=== PATIENT | male | born 1950 | race Caucasian/White ===

== ENCOUNTER 2021-11-06 07:11 | Inpatient (IN) | payer OTHER ==
[~2021-11-06] VITALS: Ht 177.8 cm; Wt 58.1 kg
--- NOTE | 2021-11-06 07:15 | NUR ---
CALLED [facility] [phone] PER ISADORA VAN DNR/DNI SINCE AUG 2021 ASKED FOR INFO TO BE FAXED TO US.
[2021-11-06] MEDS ORDERED: IV NS 0.9% 1,000 ML BAG IV ONE (07:30)
[2021-11-06] MEDS ORDERED: PIPERACILLIN /TAZOBACTAM 3.375 G in IV D5W 50 ML IV ONE (07:30)
[2021-11-06] MEDS ORDERED: VANCOMYCIN 1 GM in IV D5W 250 ML IV ONE (07:30)
--- NOTE | 2021-11-06 07:40 | NUR ---
[facility]
[2021-11-06] MEDS ORDERED: ATOR40TA PO (07:47)
[2021-11-06] MEDS ORDERED: MULT-754 PO (07:47)
[2021-11-06] MEDS ORDERED: ASPI-1169 PO (07:47)
[2021-11-06] MEDS ORDERED: DOCU-141 PO (07:47)
[2021-11-06] MEDS ORDERED: FINA5TAB11 PO (07:47)
[2021-11-06] MEDS ORDERED: SENN-261 PO (07:47)
[2021-11-06] MEDS ORDERED: CHOL100043 PO (07:47)
[2021-11-06] MEDS ORDERED: ACET-868 PO ×2 (07:47)
--- NOTE | 2021-11-06 07:49 | NUR ---
[place]- confirmed DNR/DNI status. next of kin: susie Horne [phone]
[2021-11-06] MEDS ORDERED: ACETAMINOPHEN 650 MG/SUPP.RECT RC ONE ×2 (08:00→08:28)
--- NOTE | 2021-11-06 08:02 | NUR ---
COVID ANTIGEN SWAB DONE AND SENT TO THE LAB
--- NOTE | 2021-11-06 08:08 | NUR ---
MOVE SHEET SUBMITTED.
[2021-11-06 08:17] LABS: BASOPHILS % (AUTO) 0.3 % (0.0-2.0); EOSINOPHILS % (AUTO) 0.1 % (0.0-6.0); HEMATOCRIT 43 % (39-51); HEMOGLOBIN 14.1 g/dL (13.5-17.5); LYMPHOCYTES # (AUTO) 0.5 K/uL (0.8-4.8); MEAN CORPUSCULAR HGB CONC 33 g/dl (31.0-36.0); MEAN CORPUSCULAR VOLUME 100 fL (80-96); MONOCYTES # (AUTO) 0.1 K/uL (0.1-1.30); MONOCYTES % (AUTO) 6.1 % (2.0-12.0); NEUTROPHILS # (AUTO) 1.5 K/uL (1.8-8.9); NEUTROPHILS % (AUTO) 69.5 % (43.0-81.0); PLATELET COUNT (AUTO) 193 K/uL (150-450); RED BLOOD CELL COUNT(AUTO) 4.31 MIL/uL (4.5-6.0); WHITE BLOOD COUNT (AUTO) 2.1 K/uL (4.3-11.0)
--- NOTE | 2021-11-06 08:19 | NUR ---
JENNIFER ARMSTRONG FROM LAB THE PHLEBATOMIST OBTAINED BLOOD FOR BLOOD CULTURES
[2021-11-06 08:37] LABS: ALANINE AMINOTRANSFERASE 19 U/L (12-78); ALBUMIN 2.7 g/dL (3.4-5.0); ALKALINE PHOSPHATASE 59 U/L (46-116); ASPARTATE AMINOTRANSFERASE 19 U/L (15-37); BILIRUBIN,DIRECT 0.2 mg/dL (0.0-0.2); BILIRUBIN,TOTAL 0.5 mg/dL (0.2-1.0); CALCIUM, SERUM 8.4 mg/dL (8.5-10.1); CARBON DIOXIDE 24 mmol/L (21-32); CHLORIDE 124 mmol/L (98-107); CREATININE 3.3 mg/dL (0.6-1.3); GLUCOSE 156 mg/dL (74-106); POTASSIUM 4.4 mmol/L (3.5-5.1); TOTAL PROTEIN, SERUM 7.6 g/dL (6.4-8.2)
[2021-11-06 08:40] LABS: SODIUM SERUM 162 mmol/L (136-145); UREA NITROGEN, BLOOD 87 mg/dL (7-18)
--- NOTE | 2021-11-06 09:15 | NUR ---
BLOOD PRESSURE 210/[address] MARCUS MADE AWARE.
--- NOTE | 2021-11-06 09:30 | NUR ---
Gregg SANTANA FROM [facility] SPEAKING WITH DR. MARCUS.
[2021-11-06 10:36] LABS: BILIRUBIN,URINE NEGATIVE (NEGATIVE); COLOR,URINE YELLOW (YELLOW); LEUKOCYTE ESTERASE ,URINE SMALL (NEGATIVE); NITRITE, URINE NEGATIVE (NEGATIVE); PROTEIN,URINE 100 mg/dl (NEGATIVE); UGLUCOSE NEGATIVE (NEGATIVE); UROBILINOGEN,URINE 0.2 EU/dL (0.2)
--- NOTE | 2021-11-06 11:34 | NUR ---
COVID POSITIVE PER LAB
[2021-11-06 12:18] LABS: BACTERIA,URINE Many /HPF (None Seen); SQUAMOUS EPITHELIAL CELL,UR Moderate /HPF (None Seen); WBC,URINE 21-50 /HPF (0-3)
[2021-11-06] MEDS ORDERED: ACETAMINOPHEN 650 MG/SUPP.RECT RC PRN (12:30)
[2021-11-06] MEDS ORDERED: CEFEPIME 1 GM in IV D5W 50 ML IV SCH (12:30)
[2021-11-06] MEDS ORDERED: ACETAMINOPHEN 325 MG TABLET PO PRN ×2 (12:30)
[2021-11-06] MEDS ORDERED: DEXAMETHASONE SOD PHOSPHATE 10 MG/ML VIAL ONE (12:37)
[2021-11-06] MEDS: DEXAMETHASONE SOD PHOSPHATE 10 MG/ML VIAL IV SCH (12:43)
[2021-11-06] MEDS: CEFEPIME 2 GM in IV D5W 100 ML IV SCH (13:59)
--- NOTE | 2021-11-06 16:05 | NUR ---
ROOM 117-1
--- NOTE | 2021-11-06 16:20 | NUR ---
REPORT GIVEN TO KANDACE GOMES
[2021-11-06] MEDS: ACETAMINOPHEN 325 MG TABLET PO SCH (17:00)
--- NOTE | 2021-11-06 17:54 | NUR ---
RN NOTE RECEIVED PATIENT IN BED. A/O X0. UNABLE TO VERBALIZE NEEDS. PATIENT IS OBTUNDED AND UNABLE TO COMMUNICATE. PATIENT HAS NO REPORTS OF SOB. BREATHING IS SYMMETRICAL. PATIENT IS NOTED WITH LEFT UPPER ARM PERIPHERAL IV 18G SALINE LOCK. PATIENT'S VITALS UPON ADMISSION IS BP 112/87. HEART RATE 115. RESP RATE OF 22. TEMPERATURE IS 97.6. ALL SAFETY MEASURES OBSERVED. BED IN LOWEST POSITION AND LOCKED. WILL CONTINUE TO MONITOR.
[2021-11-06 18:32] VITALS: BP 112/87
--- NOTE | 2021-11-06 19:25 | NUR ---
RN NOTE RECEIVED REPORT BY DIGESTION OPERATOR JOSE ALFREDO AND DAY SHIFT RN. PT IS ON NRB AT 15L TOLERATING WELL WITH OXYGEN SATURATION >95%. PT IS NON-VERBAL. ON MANAGER LIGHTING SHOWING NSR. IV ACCESS NOTED ON LEFT AND RIGHT UPPER ARM. PER ENDORSEMENT FROM DAY SHIFT DIGESTION OPERATOR, WAITING FOR HEPARIN FROM PHARMACY AND CALCULATIONS ARE ALL SET. ALL SAFETY MEASURES IMPLEMENTED. WILL CONTINUE TO MONITOR AND ASSESS FOR ANY CHANGES DURING SHIFT.
[2021-11-06] MEDS ORDERED: HEPARIN SODIUM, PORCINE 5000 UNITS/1 ML VIAL IV ONE (19:30)
[2021-11-06] MEDS: IV D5W 1,000 ML IV PRN (19:56)
[2021-11-06 20:00] VITALS: BP 119/70
[2021-11-06] MEDS: HEPARIN INFUSION/D5W 500 ML IV PRN (20:00)
[2021-11-06 23:12] LABS: CALCIUM, SERUM 8.5 mg/dL (8.5-10.1); CARBON DIOXIDE 20 mmol/L (21-32); CHLORIDE 123 mmol/L (98-107); CREATININE 3.7 mg/dL (0.6-1.3); GLUCOSE 142 mg/dL (74-106); POTASSIUM 4.3 mmol/L (3.5-5.1)
[2021-11-06 23:21] LABS: SODIUM SERUM 156 mmol/L (136-145); UREA NITROGEN, BLOOD 102 mg/dL (7-18)
--- NOTE | 2021-11-06 23:41 | NUR ---
RN NOTE SPOKE WITH ONCALL DR. ESQUIVEL REGARDING LAB'S REPORTED CRITICAL VALUE OF TROPONIN BEING 7.393. DR. ESQUIVEL STATED NO NEW ORDERS. ORDER NOTED.
[2021-11-07] VITALS: BP 133/90
--- NOTE | 2021-11-07 03:38 | NUR ---
RN NOTE SPOKE WITH DR. ESQUIVEL REGARDING LAB REPORTING CRITICAL VALUE OF PTT OF 170 AND PATIENT BEING ON HEPARIN DRIP. DR. ESQUIVEL ORDERED STAT RE-DRAW OF PTT AND TO BASE HEPARIN DRIP PROTOCOL ON NEXT PTT RESULT. ORDER NOTED AND CARRIED OUT.
[2021-11-07 04:00] VITALS: BP 137/89
--- NOTE | 2021-11-07 04:45 | NUR ---
RN NOTE AFTER SECOND BLOOD DRAW OF PTT PER DR. ESQUIVEL, PTT WAS STILL THE SAME AT 170. PER HEPARIN PROTOCOL, WILL HOLD FOR ONE HOUR, RESUME AT 0545 AND DECREASE BY 200 UNITS.
[2021-11-07 07:00] LABS: BASOPHILS % (AUTO) 0.2 % (0.0-2.0); HEMATOCRIT 41 % (39-51); HEMOGLOBIN 13.7 g/dL (13.5-17.5); LYMPHOCYTES # (AUTO) 1.2 K/uL (0.8-4.8); LYMPHOCYTES % (AUTO) 9.2 % (20.0-44.0); MEAN CORPUSCULAR HGB CONC 33 g/dl (31.0-36.0); MEAN CORPUSCULAR VOLUME 99 fL (80-96); MONOCYTES # (AUTO) 0.4 K/uL (0.1-1.30); NEUTROPHILS % (AUTO) 87.6 % (43.0-81.0); PLATELET COUNT (AUTO) 137 K/uL (150-450); RED BLOOD CELL COUNT(AUTO) 4.19 MIL/uL (4.5-6.0); WHITE BLOOD COUNT (AUTO) 12.5 K/uL (4.3-11.0)
--- NOTE | 2021-11-07 07:01 | NUR ---
RN NOTE NO SIGNIFICANT CHANGES IN PT CONDITION DURING SHIFT. PT IS ON NRB AT 15L. ON PAPER PLATE MACHINE TENDER SHOWING NSR. D5W RUNNING AT 50 CC/HR AND HEPARIN DRIP NOW RUNNING AT 700 UNITS PER PROTOCOL. ALL SAFETY MEASURES IMPLEMENTED. ALL DUE MEDS GIVEN ORDERED. PT KEPT CLEAN AND COMFORTABLE. WILL ENDORSE TO MORNING SHIFT RN FOR FENG.
[2021-11-07 07:45] LABS: ALANINE AMINOTRANSFERASE 29 U/L (12-78); ALBUMIN 2.4 g/dL (3.4-5.0); ALKALINE PHOSPHATASE 46 U/L (46-116); ASPARTATE AMINOTRANSFERASE 49 U/L (15-37); BILIRUBIN,TOTAL 0.6 mg/dL (0.2-1.0); CALCIUM, SERUM 8.3 mg/dL (8.5-10.1); CARBON DIOXIDE 20 mmol/L (21-32); CHLORIDE 121 mmol/L (98-107); CREATININE 3.7 mg/dL (0.6-1.3); GLUCOSE 100 mg/dL (74-106); POTASSIUM 3.9 mmol/L (3.5-5.1); SODIUM SERUM 153 mmol/L (136-145); TOTAL PROTEIN, SERUM 7.7 g/dL (6.4-8.2)
[2021-11-07 08:00] VITALS: BP 154/91
--- NOTE | 2021-11-07 08:00 | NUR ---
RN OPENING NOTES RECEIVED PATIENT IN BED ALERT WITH CONFUSION , ON NON REBREATHER MASK 15 MASK SATURATION 98%, ON NPO STATUS AT THIS TIME ORDERED SWALLOW EVAL, ON IVF AND HEPARIN DRIP ORDERED , BED IN LOWEST AND LOCKED POSITION MID LINE ERIS IN PLACE AND FLUSHED WELL WILL MONITOR
[2021-11-07 08:22] LABS: FERRITIN 606 ng/mL (8-388)
[2021-11-07 08:31] LABS: UREA NITROGEN, BLOOD 111 mg/dL (7-18)
[2021-11-07] MEDS: DEXAMETHASONE SOD PHOSPHATE 10 MG/ML VIAL IV SCH (08:34)
[2021-11-07] MEDS: ASPIRIN 81 MG TAB.CHEW PO SCH (08:36)
[2021-11-07] MEDS: DOCUSATE SODIUM 100 MG CAPSULE PO SCH (08:37)
[2021-11-07] MEDS: ATORVASTATIN 40 MG TABLET PO SCH (08:37)
[2021-11-07] MEDS: FINASTERIDE (5 MG) 5 MG TABLET PO SCH (08:37)
[2021-11-07] MEDS: ACETAMINOPHEN 325 MG TABLET PO SCH ×2 (08:38→16:40)
[2021-11-07] MEDS: MULTIVITAMINS,THERAGRAN 1 UDTAB TABLET PO SCH (08:38)
[2021-11-07] MEDS: CHOLECALCIFEROL 1,000 UNIT TABLET (VIT D3) PO SCH (08:38)
[2021-11-07] MEDS: SENNOSIDES 8.6 MG TABLET PO SCH (08:38)
[2021-11-07] MEDS ORDERED: IV D5W 1,000 ML IV SCH (09:30)
--- NOTE | 2021-11-07 11:53 | NUR ---
STRUCTURAL IRON WORKER NOTE PTT 128.1 PER PROTOCOL HOLD HEPARIN DRIP FOR 1 HOUR AND DECREASE TO 200 UNIT , WILL F\U AND PTT AT 1800 AGAIN
[2021-11-07 12:00] VITALS: BP 105/82
[2021-11-07] MEDS: CEFEPIME 2 GM in IV D5W 100 ML IV SCH (12:06)
[2021-11-07 12:20] LABS: LYMPHOCYTES % (MANUAL) 20 % (16-48); MONOCYTES % (MANUAL) 6 % (0-11.0); NEUTROPHILS % (MANUAL) 24 (42-76)
[2021-11-07 12:21] LABS: BAND % (MANUAL) 50 % (0.0-5.0)
--- NOTE | 2021-11-07 13:03 | NUR ---
DANCE PROFESSOR NOTE DR MAGAÑA AT BEDSIDE ROD TAPE OPERATOR NOTIFIED ABOUT BUN 111 CREAT 3.7 NA 153 STSTED THAT WILL CHECK IT OUT
--- NOTE | 2021-11-07 14:12 | NUR ---
telephoner not e ua callected all needs attended
[2021-11-07] MEDS: HEPARIN INFUSION/D5W 500 ML IV PRN (15:38)
[2021-11-07 16:00] VITALS: BP 150/103
--- NOTE | 2021-11-07 16:56 | NUR ---
telecommunications administrator note spoke with dr newsome notified that patient npo but a more awake ok to start clear liquid diet also notified that patient with chest congestion reported chest xray result stated ok yo change to ivf d5w 50 ml from 75 ml per hour ,aware that na 153,
[2021-11-07 17:03] LABS: CREATININE, URINE 138.8 MG/DL (30.0-125.0); URINE TOTAL PROTEIN 117.8 mg/dL (0-11.9)
[2021-11-07] MEDS: IV D5W 1,000 ML IV PRN (17:04)
[2021-11-07 17:25] LABS: BILIRUBIN,URINE NEGATIVE (NEGATIVE); COLOR,URINE YELLOW (YELLOW); LEUKOCYTE ESTERASE ,URINE SMALL (NEGATIVE); NITRITE, URINE NEGATIVE (NEGATIVE); PH,URINE 5.5 (5.0-8.0); PROTEIN,URINE 30 mg/dl (NEGATIVE); UGLUCOSE NEGATIVE (NEGATIVE); UROBILINOGEN,URINE 0.2 EU/dL (0.2)
[2021-11-07 18:20] LABS: BACTERIA,URINE Many /HPF (None Seen); SQUAMOUS EPITHELIAL CELL,UR Many /HPF (None Seen)
--- NOTE | 2021-11-07 18:37 | NUR ---
television mechanic note on heparin drip as ordered awaiting for ptt Addendum: 11/07/21 at 1843 by CONCHITA GROVER RN called x2 to laboratory about ptt to be drown at 1800 still not done stated that will check it out will marylin
[2021-11-07 18:53] LABS: EOSINOPHIL,URINE None Seen
--- NOTE | 2021-11-07 19:27 | NUR ---
you oliver note no report for ptt .endorsed to tico oliver next shift to f\u
--- NOTE | 2021-11-07 19:36 | NUR ---
RN OPENING NOTES RECEIVED PATIENT IN BED ALERT WITH CONFUSION , ON NON REBREATHER MASK 15 MASK SATURATION 98%, ON NPO STATUS AT THIS TIME ORDERED SWALLOW EVAL, ON IVF AND HEPARIN DRIP received critical lab result aptt 90.2 per protocol stopped heparin at this time will hold for 1 hour and adjust tp 300ml/hr in an hour. BED IN LOWEST AND LOCKED POSITION MID LINE ERIS IN PLACE AND FLUSHED WELL WILL MONITOR
[2021-11-07 20:00] VITALS: BP 149/110
--- NOTE | 2021-11-07 20:30 | NUR ---
RN NOTES DECREASED HEPARIN DRIP 200 ML/HR AFTER HOLDING FOR 1 HR. PREVIOUS RATE 500ML/HR DECREASED DRIP TO 300ML/HR AND REPORTED PTT IN 6 HRS AT 0230 AM. WILL CONTINUE TO MONITOR PT
[2021-11-08 01:02] VITALS: BP 162/110
--- NOTE | 2021-11-08 03:59 | NUR ---
RN NOTES PTT 79.8 AT THIS TIME PER PROTOCOL WILL DECREASE HEPARIN BY 50ML/HR. HEPARIN WAS PREVIOUSLY 300ML/HR NOW IT WILL BE 250ML/HR
[2021-11-08 04:00] VITALS: BP 159/97
--- NOTE | 2021-11-08 06:44 | NUR ---
RN OPENING NOTES PATIENT IN BED ALERT WITH CONFUSION , ON NON REBREATHER MASK 15 MASK SATURATION 98%,ON IVF AND HEPARIN DRIP RUNNING @ 250ML.HR RESTRAINT ON RIGHT ARM DUE TO PT CONTINUE TO TAKE NON REBREATHER OFF. BED IN LOWEST AND LOCKED POSITION MID LINE ERIS IN PLACE AND FLUSHED WELL WILL ENDORSE CARE.
--- NOTE | 2021-11-08 07:35 | NUR ---
PIN STICKER OPENING NOTES RECEIVED PATIENT IN BED, AWAKE, NON-VERBAL. PATIENT ON OXYGEN THERAPY AT 15 LPM VIA NRB. TELE MONITOR WITH A CURRENT READING OF SR 98. IV ACCESS ERIS AND LAC G #20 PRESENT AND INTACT RUNNING HEPARIN. NO COMPLAINS OF PAIN. SAFETY PRECAUTIONS IN PLACE; BED IN LOW POSITION AND LOCKED, RAILS UP X2, CALL LIGHT WITHIN REACH. WILL CONTINUE TO MONITOR PATIENT.
[2021-11-08 07:39] LABS: BASOPHILS % (AUTO) 0.1 % (0.0-2.0); HEMATOCRIT 40 % (39-51); HEMOGLOBIN 13.6 g/dL (13.5-17.5); LYMPHOCYTES # (AUTO) 1.1 K/uL (0.8-4.8); LYMPHOCYTES % (AUTO) 8.6 % (20.0-44.0); MEAN CORPUSCULAR HGB CONC 34 g/dl (31.0-36.0); MEAN CORPUSCULAR VOLUME 98 fL (80-96); MONOCYTES # (AUTO) 0.5 K/uL (0.1-1.30); NEUTROPHILS # (AUTO) 11.7 K/uL (1.8-8.9); NEUTROPHILS % (AUTO) 87.3 % (43.0-81.0); PLATELET COUNT (AUTO) 155 K/uL (150-450); RED BLOOD CELL COUNT(AUTO) 4.15 MIL/uL (4.5-6.0); WHITE BLOOD COUNT (AUTO) 13.4 K/uL (4.3-11.0)
[2021-11-08] MEDS ORDERED: VANCOMYCIN 0.75 GM in IV D5W 250 ML IV SCH (08:00)
[2021-11-08] MEDS: DOCUSATE SODIUM 100 MG CAPSULE PO SCH (08:32)
[2021-11-08] MEDS: ATORVASTATIN 40 MG TABLET PO SCH (08:32)
[2021-11-08] MEDS: ASPIRIN 81 MG TAB.CHEW PO SCH (08:32)
[2021-11-08 08:33] LABS: ALANINE AMINOTRANSFERASE 32 U/L (12-78); ALBUMIN 2.5 g/dL (3.4-5.0); ALKALINE PHOSPHATASE 61 U/L (46-116); ASPARTATE AMINOTRANSFERASE 47 U/L (15-37); BILIRUBIN,TOTAL 0.5 mg/dL (0.2-1.0); CALCIUM, SERUM 8.9 mg/dL (8.5-10.1); CARBON DIOXIDE 19 mmol/L (21-32); CHLORIDE 122 mmol/L (98-107); CREATININE 3.3 mg/dL (0.6-1.3); GLUCOSE 78 mg/dL (74-106); MAGNESIUM 2.9 mg/dL (1.8-2.4); PHOSPHORUS 4.4 mg/dL (2.5-4.9); POTASSIUM 4.1 mmol/L (3.5-5.1); SODIUM SERUM 155 mmol/L (136-145); TOTAL PROTEIN, SERUM 8.1 g/dL (6.4-8.2)
[2021-11-08] MEDS: MULTIVITAMINS,THERAGRAN 1 UDTAB TABLET PO SCH (08:33)
[2021-11-08] MEDS: FINASTERIDE (5 MG) 5 MG TABLET PO SCH (08:33)
[2021-11-08] MEDS: ACETAMINOPHEN 325 MG TABLET PO SCH ×2 (08:33→16:52)
[2021-11-08] MEDS: SENNOSIDES 8.6 MG TABLET PO SCH (08:33)
[2021-11-08] MEDS: CHOLECALCIFEROL 1,000 UNIT TABLET (VIT D3) PO SCH (08:33)
[2021-11-08 08:34] LABS: CREATINE KINASE, TOTAL 774 U/L (39-308)
[2021-11-08] MEDS: DEXAMETHASONE SOD PHOSPHATE 10 MG/ML VIAL IV SCH (08:36)
[2021-11-08 08:48] LABS: UREA NITROGEN, BLOOD 121 mg/dL (7-18)
[2021-11-08] MEDS: HEPARIN SODIUM, PORCINE 5000 UNITS/1 ML VIAL SQ SCH ×2 (10:02→22:15)
--- NOTE | 2021-11-08 10:07 | NUR ---
SLAG MIXER NOTES PER PHARMACY AND MD ORDER HEPARIN DRIP STOPPED AND HEPARIN SQ STARTED
--- NOTE | 2021-11-08 10:37 | NUR ---
WOUND CARE CONSULT: REVIEWED CHART,NURSING DOCUMENTATION AND PHOTOS WHICH INDICATE LOWER EXTREMITY WOUNDS, PRESENT ON ADMISSION. DPM CONSULT CALLED TO DR BARFIELD. RECOMMENDATIONS MADE FOR SKIN PROTECTION. DISCUSSED WITH NURSING STAFF. PT IS ON JUANCARLOS ISOFLEX LOW AIRLOSS BED. M Aron IN AGREEMENT WITH PLAN OF CARE.
[2021-11-08 10:39] VITALS: BP 144/115
[2021-11-08 12:08] VITALS: BP 137/69
[2021-11-08] MEDS: CEFEPIME 2 GM in IV D5W 100 ML IV SCH (12:32)
[2021-11-08 14:24] LABS: BAND % (MANUAL) 2 % (0.0-5.0); LYMPHOCYTES % (MANUAL) 13 % (16-48); MONOCYTES % (MANUAL) 5 % (0-11.0); NEUTROPHILS % (MANUAL) 80 (42-76)
--- NOTE | 2021-11-08 15:53 | NUR ---
ROTOPRINTER NOTES PER MD NG-TUBE INSERTED. ORDERED CHEST X-RAY
[2021-11-08 17:44] VITALS: BP 140/71
--- NOTE | 2021-11-08 18:50 | NUR ---
WELL LOGGER OPENING NOTES PATIENT REMAINS IN BED, AWAKE, NON-VERBAL. PATIENT ON OXYGEN THERAPY AT 15 LPM VIA NRB. TELE MONITOR WITH A CURRENT READING OF SR. IV ACCESS ERIS AND LAC G #20 PRESENT AND INTACT. NO COMPLAINS OF PAIN DURING SHIFT. ALL NEEDS ATTENDED DURING THE DAY. SAFETY PRECAUTIONS IN PLACE; BED IN LOW POSITION AND LOCKED, RAILS UP X2, CALL LIGHT WITHIN REACH. WILL ENDORSE TO BUSINESS TRANSFORMATION MANAGER NURSE FOR FENG.
--- NOTE | 2021-11-08 19:15 | NUR ---
RN OPENING NOTES RECEIVED PATIENT IN BED, AWAKE, A/O X0, NON VERBAL. ON NRB @ 15LPM, NO SOB NOTED, NO S/S OF DISTRESS NOTED.NOTED WITH IV ACCESS AT LAC G # 20 AND ERIS PATENT AND INTACT FLUSHED WITH NS, RUNNING D5 W @ 50 ML/HR. WITH NGT INPLACED, NO RESIDUAL NOTED. ON CLEAR LIQUID. NO COMPLAINS OF PAIN. SAFETY PRECAUTIONS IN PLACE; BED IN LOWEST POSITION AND LOCKED, RAILS UP X2, CALL LIGHT WITHIN REACH. WILL CONTINUE TO MONITOR PATIENT
[2021-11-08 20:00] VITALS: BP 143/102
[2021-11-09] VITALS: BP 133/87
[2021-11-09 04:00] VITALS: BP 155/95
--- NOTE | 2021-11-09 07:57 | NUR ---
RN CLOSING NOTES PATIENT REMAIN STABLE THROUGH OUT THE SHIFT, NO SOB NOTED, NO S/S OF DISTRESS NOTED.NOTED WITH IV ACCESS AT LAC G # 20 AND ERIS PATENT AND INTACT FLUSHED WITH NS, RUNNING D5 W @ 50 ML/HR. WITH NGT INPLACED, NO RESIDUAL NOTED. ON CLEAR LIQUID. ALL DUE MEDS GIVEN ORDERED. NO COMPLAINS OF PAIN. SAFETY PRECAUTIONS IN PLACE; BED IN LOWEST POSITION AND LOCKED, RAILS UP X2, CALL LIGHT WITHIN REACH. WILL CONTINUE TO MONITOR PATIENT
[2021-11-09 08:00] VITALS: BP 145/74
[2021-11-09 08:12] LABS: CALCIUM, SERUM 8.9 mg/dL (8.5-10.1); CARBON DIOXIDE 18 mmol/L (21-32); CHLORIDE 121 mmol/L (98-107); CREATININE 3.3 mg/dL (0.6-1.3); GLUCOSE 97 mg/dL (74-106); POTASSIUM 4.5 mmol/L (3.5-5.1); SODIUM SERUM 154 mmol/L (136-145)
[2021-11-09 08:26] LABS: UREA NITROGEN, BLOOD 141 mg/dL (7-18)
[2021-11-09] MEDS: SENNOSIDES 8.6 MG TABLET PO SCH (10:37)
[2021-11-09] MEDS: ACETAMINOPHEN 325 MG TABLET PO SCH ×2 (10:38→16:50)
[2021-11-09] MEDS: MULTIVITAMINS,THERAGRAN 1 UDTAB TABLET PO SCH (10:38)
[2021-11-09] MEDS: ASPIRIN 81 MG TAB.CHEW PO SCH (10:38)
[2021-11-09] MEDS: FINASTERIDE (5 MG) 5 MG TABLET PO SCH (10:38)
[2021-11-09] MEDS: CHOLECALCIFEROL 1,000 UNIT TABLET (VIT D3) PO SCH (10:38)
[2021-11-09] MEDS: DEXAMETHASONE SOD PHOSPHATE 10 MG/ML VIAL IV SCH (10:38)
[2021-11-09] MEDS: HEPARIN SODIUM, PORCINE 5000 UNITS/1 ML VIAL SQ SCH ×2 (10:40→21:33)
[2021-11-09] MEDS: DOCUSATE SODIUM 100 MG CAPSULE PO SCH (10:42)
[2021-11-09] MEDS: ATORVASTATIN 40 MG TABLET PO SCH (10:42)
[2021-11-09 11:07] LABS: *SPE A/G RATIO 0.5 (0.7-1.7); *SPE ALPHA-1-GLOBULIN 0.4 g/dL (0.0-0.4); *SPE BETA GLOBULIN 0.9 g/dL (0.7-1.3); *SPE M-SPIKE 0.6 g/dL (Not Observed)
--- NOTE | 2021-11-09 11:15 | NUR ---
SS consult requested for pt. who comes from facility with wounds. SW will follow up at a later time.
[2021-11-09 12:00] VITALS: BP 105/60
[2021-11-09] MEDS: CEFEPIME 2 GM in IV D5W 100 ML IV SCH (12:18)
[2021-11-09] MEDS: NEPRO 1,000 ML BOTTLE NG PRN (14:16)
--- NOTE | 2021-11-09 15:25 | NUR ---
RN NOTE NEPHRO SPOKE WITH SON AND GOT VERBAL CONSENT FOR HEMODIALYSIS AND HD PERMACATH PLACEMENT.
[2021-11-09] MEDS: CEFTRIAXONE 1 G in IV D5W 50 ML IV SCH (15:32)
[2021-11-09] MEDS: IV D5W 1,000 ML IV PRN (15:33)
[2021-11-09 16:00] VITALS: BP 137/68
--- NOTE | 2021-11-09 17:52 | NUR ---
RN OPENING NOTES RECEIVED PATIENT IN BED, BOTH EYE CLOSED, A/O X0, NON VERBAL. PT WAS ON NRB @ 15LPM, BUT O2 SAT 76-78 %NOTIFIED DR. GUEVARA GRANDE WITH NEW ORDER FOR HIGH FLOW O2 WITH 100% O2. ORDER NOTED AND CARRIED OUT. PT'S CODE STATUS DNR/DNI. IV ACCESS AT LAC G # 20 AND ERIS MIDLINE PATENT AND INTACT. NEW LINE PERMA CATHETER PLACEMENT INSERTED ON RT IJ INTACT AND PATENT. NO BLEEDING NOTED. CHEST X-RAY DONE. NGT IN PLACE WITH NEPHRO 45CC/HR. NO RESIDUAL NOTED. NO FACIAL GRIMACING NOTES. ALL SAFETY PRECAUTIONS IN PLACE. BED IN LOWEST POSITION AND LOCKED, RAILS UP X2, PLACE CALL LIGHT WITHIN REACH. WILL CONTINUE TO MONITOR. Addendum: 11/09/21 at 2101 by GYPSY QUICK RN WRONG TIME. REAL TIME 1951
[2021-11-09 20:00] VITALS: BP 99/68
--- NOTE | 2021-11-09 20:07 | NUR ---
RT NOTE LATE ENTRY Pt rec'd on NRB mask @ 15LPM with an O2 saturation of 84%. Pt placed on HFNC 40LPM 100% Fio2 with NRB mask. O2 saturation at 90%. RN aware. Will continue to monitor closely. Addendum: 11/09/21 at 2109 by REMY YODER RT Amended: Links added.
--- NOTE | 2021-11-09 20:10 | NUR ---
RN NOTES: RT CAME AND APPLIED HIGH FLOW O2 100%. O2 SAT INCREASE TO 86%. WILL CONTINUE TO MONITOR
--- NOTE | 2021-11-09 20:54 | NUR ---
RN NOTE PT RESTING IN BED, POST PERMACATH PLACEMENT ON RJV. CHEST X RAY ORDERED STAT FOR PLACEMENT. DUE MEDICATIONS GIVEN. NEEDS ATTENDED. NGT IN PLACE AND CONTINUES ON FEEDING NEPHRO @45CC/HR. ASPIRATION PREC MAINTAINED.
[2021-11-09] MEDS ORDERED: ALBUMIN 25% 25 GM in PREMIX 1 EA IV PRN (23:00)
--- NOTE | 2021-11-09 23:48 | NUR ---
REMOVED PATIENT OFF THE NRB AND LOWERED THE LITER FLOW DOWN TO 35L. PT IS CURRENTLY ON THE HFNC AT 35L AT 100% SATING 100%. RN IS AWARE. WILL CONT TO MONITOR. Addendum: 11/09/21 at 2350 by ES NESS RT Amended: Links added.
[2021-11-10] VITALS (8 sets, daily range): BP systolic 114–138; BP diastolic 47–85
[2021-11-10] MEDS ORDERED: ALBUMIN 25% 100 ML IV ONE (00:32)
--- NOTE | 2021-11-10 01:40 | NUR ---
RN NOTES: DIALYSIS WAS NOT DONE. DURING DIALYSIS, PT STARTED DESATURATION 76% WITH HIGH FLOW. PT BECAME LETHARGIC. BP WAS DECREASING. DIALYSIS WAS STOPPED. NO OUTPUT. ONLY [address] SYED AWARE. WILL CONTINUE TO MONITOR
--- NOTE | 2021-11-10 02:02 | NUR ---
DURING DIALYSIS PT STARTED DESAT DOWN TO 80s. PT PLACED BACK ON 40L AT 100% WITH NRB MASK AT 15L. PT SATTING AT 85%. RN AWARE. WILL CONT TO MONITOR PT. Addendum: 11/10/21 at 0203 by ES NESS RT Amended: Links added.
--- NOTE | 2021-11-10 06:54 | NUR ---
RN CLOSING NOTES PATIENT IN BED, BOTH EYE CLOSED, A/O X0, NON VERBAL. PT ON HIGH FLOW O2 WITH 100% AT 40LPM, O2 SAT 97% IV ACCESS AT LAC G # 20 AND ERIS MIDLINE PATENT AND INTACT, RUNNING D5 50CC/HR. NEW LINE PERMA CATHETER PLACEMENT INSERTED ON RT IJ INTACT AND PATENT. NO BLEEDING NOTED. NGT IN PLACE. HOLD THE NEPHRO DUE TO DIALYSIS WAS NOT DONE. NO RESIDUAL NOTED. NO FACIAL GRIMACING NOTES. NO ACUTE DISTRESS. HEPARIN GIVEN ORDER. ALL SAFETY PRECAUTIONS IN PLACE. BED IN LOWEST POSITION AND LOCKED, RAILS UP X2, PLACE CALL LIGHT WITHIN REACH. WILL ENDORSE TO MORNING SHIFT NURSE.
--- NOTE | 2021-11-10 07:48 | NUR ---
RN NOTES: NIXON CATHETER INTACT AND PATENT WITH YELLOWISH URINE. NO HEMATURIA NOTED.
[2021-11-10 09:04] LABS: CALCIUM, SERUM 8.3 mg/dL (8.5-10.1); CARBON DIOXIDE 24 mmol/L (21-32); CHLORIDE 117 mmol/L (98-107); CREATININE 3.5 mg/dL (0.6-1.3); GLUCOSE 129 mg/dL (74-106); POTASSIUM 4.5 mmol/L (3.5-5.1); SODIUM SERUM 149 mmol/L (136-145)
[2021-11-10 09:28] LABS: UREA NITROGEN, BLOOD 133 mg/dL (7-18)
[2021-11-10] MEDS: SENNOSIDES 8.6 MG TABLET PO SCH (10:29)
[2021-11-10] MEDS: DEXAMETHASONE SOD PHOSPHATE 10 MG/ML VIAL IV SCH (10:30)
[2021-11-10] MEDS: ASPIRIN 81 MG TAB.CHEW PO SCH (10:30)
[2021-11-10] MEDS: CHOLECALCIFEROL 1,000 UNIT TABLET (VIT D3) PO SCH (10:30)
[2021-11-10] MEDS: ATORVASTATIN 40 MG TABLET PO SCH (10:30)
[2021-11-10] MEDS: MULTIVITAMINS,THERAGRAN 1 UDTAB TABLET PO SCH (10:30)
[2021-11-10] MEDS: ACETAMINOPHEN 325 MG TABLET PO SCH ×2 (10:30→17:00)
[2021-11-10] MEDS: FINASTERIDE (5 MG) 5 MG TABLET PO SCH (10:30)
[2021-11-10] MEDS: DOCUSATE SODIUM 100 MG CAPSULE PO SCH (10:30)
[2021-11-10] MEDS: HEPARIN SODIUM, PORCINE 5000 UNITS/1 ML VIAL SQ SCH ×2 (10:32→21:06)
[2021-11-10] MEDS: CEFTRIAXONE 1 G in IV D5W 50 ML IV SCH (13:26)
--- NOTE | 2021-11-10 15:15 | NUR ---
SS Consult: SS Consult requested forpt. with wounds from facility. MORENITA called [facility] [phone] and gave verbal report to Olena Price. Per Olena's request, MORENITA faxed [phone] to [facility] FAX: [phone] and emailed [phone] at [email or web address]. MORENITA will remain available as needed.
--- NOTE | 2021-11-10 19:05 | NUR ---
RN NOTES PATIENT IN BED, NON VERBAL. PT ON HIGH FLOW O2 WITH 100% AT 40LPM, O2 SAT 100% IV ACCESS AT LAC G # 20 AND ERIS MIDLINE PATENT AND INTACT, RUNNING D5W 50CC/HR. PERMA CATHETER RT IJ INTACT. NO BLEEDING NOTED. NGT IN PLACE. DUE MEDS GIVEN, NEEDS ATTENDED. SAFETY PRECAUTIONS IN PLACE. BED IN LOWEST POSITION AND LOCKED, RAILS UP X2, PLACE CALL LIGHT WITHIN REACH. WILL ENDORSE NEXT SHIFT NURSE.
--- NOTE | 2021-11-10 19:15 | NUR ---
RN CLOSING NOTES PATIENT RECEIVED IN BED, ALERT, ORIENTED X 0, NON VERBAL, RESPIRATORY EVEN AND UNLABORED. ON NRB @ 15LPM AND FIGH FLOW OXYGEN @ 40LPM, NO SOB NOTED, NOT IN DISTRESS. PATIENT NOTED WITH IV ACCES ON ERIS MIDLINE INTACT AND PATENT, FLUSHED WITH NS AND RUNNING WITH D5W 1L @ 50CC/HR. NO S/S OF INFILTRATIONS. ON NGT FEEDING NEPHRO @ 45CC/HR, IN PLACED, INTACT, NO RESIDUAL NOTED UPON ASPIRATION, HOB KEPT ELEVATED. NO FACIAL GRIMACING NOTED. ALL SAFETY MEASURE IN PLACE. BED IN LOW POSITION AND LOCKED. SIDE RAILS X3, PLACE CALL LIGHT WITH IN REACH.
[2021-11-10] MEDS: IV D5W 1,000 ML IV PRN (23:16)
[2021-11-11] VITALS: BP 143/110
[2021-11-11 04:00] VITALS: BP 147/89
--- NOTE | 2021-11-11 06:51 | NUR ---
RN CLOSING NOTES PATIENT REMAIN STABLE THROUGH OUT THE SHIFT, RESPIRATORY EVEN AND UNLABORED. ON NRB @ 15LPM AND FIGH FLOW OXYGEN @ 40LPM, NO SOB NOTED, NOT IN DISTRESS. PATIENT NOTED WITH IV ACCES ON ERIS MIDLINE INTACT AND PATENT, FLUSHED WITH NS AND RUNNING WITH D5W 1L @ 50CC/HR. NO S/S OF INFILTRATIONS. ON NGT INTACT AND PATENT, HOB KEPT ELEVATED. NO FACIAL GRIMACING NOTED. ALL DUE MEDS GIVEN ORDERED. ALL SAFETY MEASURE IN PLACE. BED IN LOW POSITION AND LOCKED. SIDE RAILS X3, PLACE CALL LIGHT WITH IN REACH.
--- NOTE | 2021-11-11 07:30 | NUR ---
RN NOTE PATIENT STABLE AT TIME OF ASSESSMENT. BREATHING EVEN AND UNLABORED. PT ON NRB AT 15LPM AND HI FLOW O2 @ 40LPM. NO SIGNS OF DISTRESS OR SOB. PT HAS IV ACCESS ERIS MIDLINE. INTACT AND PATENT. PT HAS NGT INTACT AND PATENT. HOB KEPT ELEVATED. BED IN LOWEST POSITION AND WHEELS LOCKED IN PLACE. CALL LIGHT WITHIN REACH. ALL SAFETY MEASURES NOTED. WILL CONTINUE TO MONITOR.
[2021-11-11 07:52] LABS: CALCIUM, SERUM 7.6 mg/dL (8.5-10.1); CARBON DIOXIDE 22 mmol/L (21-32); CHLORIDE 114 mmol/L (98-107); CREATININE 3.4 mg/dL (0.6-1.3); GLUCOSE 129 mg/dL (74-106); POTASSIUM 4.1 mmol/L (3.5-5.1); SODIUM SERUM 145 mmol/L (136-145)
[2021-11-11 08:00] VITALS: BP 151/101
[2021-11-11 08:07] LABS: UREA NITROGEN, BLOOD 136 mg/dL (7-18)
[2021-11-11] MEDS: SENNOSIDES 8.6 MG TABLET PO SCH (08:57)
[2021-11-11] MEDS: DOCUSATE SODIUM 100 MG CAPSULE PO SCH (08:57)
[2021-11-11] MEDS: MULTIVITAMINS,THERAGRAN 1 UDTAB TABLET PO SCH (08:57)
[2021-11-11] MEDS: ASPIRIN 81 MG TAB.CHEW PO SCH (08:57)
[2021-11-11] MEDS: CHOLECALCIFEROL 1,000 UNIT TABLET (VIT D3) PO SCH (08:57)
[2021-11-11] MEDS: FINASTERIDE (5 MG) 5 MG TABLET PO SCH (08:57)
[2021-11-11] MEDS: ATORVASTATIN 40 MG TABLET PO SCH (08:57)
[2021-11-11] MEDS: ACETAMINOPHEN 325 MG TABLET PO SCH ×2 (08:57→16:34)
[2021-11-11] MEDS: DEXAMETHASONE SOD PHOSPHATE 10 MG/ML VIAL IV SCH (08:58)
[2021-11-11] MEDS: HEPARIN SODIUM, PORCINE 5000 UNITS/1 ML VIAL SQ SCH ×2 (09:00→21:49)
[2021-11-11] MEDS: CEFTRIAXONE 1 G in IV D5W 50 ML IV SCH (13:45)
--- NOTE | 2021-11-11 18:50 | NUR ---
RN NOTES PATIENT IN BED, NON VERBAL. PT ON HIGH FLOW O2 WITH 100% AT 40LPM, O2 SAT 100% IV ACCESS AT LAC G # 20 AND ERIS MIDLINE PATENT AND INTACT. PERMA CATHETER RT IJ INTACT. NO BLEEDING NOTED. NGT IN PLACE. DUE MEDS GIVEN, NEEDS ATTENDED. SAFETY PRECAUTIONS IN PLACE. BED IN LOWEST POSITION AND LOCKED, RAILS UP X2, PLACE CALL LIGHT WITHIN REACH. WILL ENDORSE NEXT SHIFT NURSE. PT WAS NOT ABLE TO TOLERATE HD, PMD MADE AWARE.
--- NOTE | 2021-11-11 19:00 | NUR ---
RN NOTE RECEIVED PATIENT IN BED, CONFUSED, IN NO S/SX OF ACUTE DISTRESS AT THIS TIME. SATURATION AT 100% ON 40 LPM VIA HIGH FLOW NC, AND 15 LPM VIA NRB MASK, SR ON THE MONITOR, HR IS 91. NOTED IV SITE AT JEANCARLOS 18G, AND ERIS MIDLINE, ALL HUBS PATENT AND FLUSHING WELL, NO S/S OF INFECTION. NOTED NGTUBE AT L NARE IN PLACE, POSITIVE PLACEMENT VERIFIED BY ASPIRATION AND AUSCULTATION, NO RESIDUAL, WITH TUBE FEEDING OF NEPRO AT 45 ML/HR. NIXON CATHETER CONNECTED TO URINE BAG IN PLACE, DRAINING TO A CLEAR, YELLOW OUTPUT. SOFT WRIST RESTRAINT IN PLACE AT R WRIST, SKIN AND CIRCULATION WAS CHECKED, NOTED WITHIN NORMAL LIMITS. SAFETY MEASURES IMPLEMENTED. PATIENT BED ALARM IS ON. HEAD OF BED ELEVATED. BED IS LOCKED, IN LOWEST POSITION AND SIDE RAILS UP. CALL LIGHT WITHIN REACH OF THE PATIENT. WILL CONTINUE TO MONITOR AND REASSESS FOR ANY CHANGES.
--- NOTE | 2021-11-11 19:48 | NUR ---
RT PT RECVD ON HFNC 40LPM 1005 WITH NRB 100%.. O2 SAT 100%. WILL CONTINUE TO MONITOR
[2021-11-11 20:00] VITALS: BP 152/106
[2021-11-12] VITALS: BP 152/95
[2021-11-12 04:00] VITALS: BP 147/93
[2021-11-12] MEDS: NEPRO 1,000 ML BOTTLE NG PRN (07:04)
[2021-11-12 08:00] VITALS: BP 136/89
[2021-11-12 08:22] LABS: CALCIUM, SERUM 8.2 mg/dL (8.5-10.1); CARBON DIOXIDE 20 mmol/L (21-32); CHLORIDE 114 mmol/L (98-107); CREATININE 3.4 mg/dL (0.6-1.3); GLUCOSE 153 mg/dL (74-106); POTASSIUM 4.2 mmol/L (3.5-5.1); SODIUM SERUM 145 mmol/L (136-145)
[2021-11-12 08:44] LABS: UREA NITROGEN, BLOOD 139 mg/dL (7-18)
[2021-11-12] MEDS: ACETAMINOPHEN 325 MG TABLET PO SCH ×2 (08:53→17:00)
[2021-11-12] MEDS: ASPIRIN 81 MG TAB.CHEW PO SCH (08:53)
[2021-11-12] MEDS: MULTIVITAMINS,THERAGRAN 1 UDTAB TABLET PO SCH (08:53)
[2021-11-12] MEDS: DOCUSATE SODIUM 100 MG CAPSULE PO SCH (08:53)
[2021-11-12] MEDS: ATORVASTATIN 40 MG TABLET PO SCH (08:54)
[2021-11-12] MEDS: DEXAMETHASONE SOD PHOSPHATE 10 MG/ML VIAL IV SCH (08:54)
[2021-11-12] MEDS: FINASTERIDE (5 MG) 5 MG TABLET PO SCH (08:54)
[2021-11-12] MEDS: CHOLECALCIFEROL 1,000 UNIT TABLET (VIT D3) PO SCH (08:54)
[2021-11-12] MEDS: SENNOSIDES 8.6 MG TABLET PO SCH (08:54)
[2021-11-12] MEDS: HEPARIN SODIUM, PORCINE 5000 UNITS/1 ML VIAL SQ SCH ×2 (08:55→21:04)
[2021-11-12 12:00] VITALS: BP 116/74
[2021-11-12] MEDS: CEFTRIAXONE 1 G in IV D5W 50 ML IV SCH (14:15)
[2021-11-12] MEDS ORDERED: LORAZEPAM INJ 2 MG/ML VIAL IV PRN (15:30)
[2021-11-12 16:00] VITALS: BP 97/66
[2021-11-12] MEDS ORDERED: SCOPOLAMINE PATCH 1 MG/72HR TD SCH (16:00)
[2021-11-12] MEDS ORDERED: KEY,NONCONTROL,TO KEEP IN PYXI 1 EA MC ONE (16:08)
--- NOTE | 2021-11-12 16:20 | NUR ---
RN NOTE PT SON HAYLEY IN ROOM. AGREED TO COMFORT MEASURES. DR. JUAREZ AWARE. MORPHINE DRIP PLACED AT 1620.
--- NOTE | 2021-11-12 19:25 | NUR ---
RN NOTE PT RECEIVED IN BED. PT IS ON HF AT 40 LPM AND NRB AT 15LPM. BREATHING EVEN AND UNLABORED. CURRENT OXYGEN SATURATION AT 100%. PT IS NOT ALERT OR ORIENTED. ON DUMB WAITER OPERATOR SHOWING NSR-ST. PER ENDORSEMENT, PT IS NOW ON COMFORT CARE WITH MORPHINE DRIP RUNNING AT 5 ML/HR VIA RIGHT UPPER ARM ML. RIGHT IJ HD CATH NOTED. ALL SAFETY MEASURES IMPLEMENTED. WILL CONTINUE TO MONITOR AND ASSESS FOR ANY CHANGES DURING SHIFT.
[2021-11-12 20:00] VITALS: BP 113/65
[2021-11-13] VITALS (7 sets, daily range): BP systolic 86–107; BP diastolic 27–59
--- NOTE | 2021-11-13 06:57 | NUR ---
RN NOTE NO CHANGES IN PT CONDITION DURING SHIFT. PT IS ON HF AT 40 LPM AND NRB AT 15LPM. BREATHING EVEN AND UNLABORED. CURRENT OXYGEN SATURATION AT 100%. PT IS NOT ALERT OR ORIENTED. MORPHINE DRIP RUNNING AT 5 ML/HR VIA RIGHT UPPER ARM ML. RIGHT IJ HD CATH NOTED. ALL DUE MEDS GIVEN ORDERED. PT KEPT CLEAN AND COMFORTABLE. ALL SAFETY MEASURES IMPLEMENTED. WILL ENDORSE TO MORNING SHIFT RN FOR FENG.
--- NOTE | 2021-11-13 07:29 | NUR ---
HOUSEHOLD APPLIANCE MECHANIC OPENING NOTE PT RECEIVED IN BED. PT IS ON HF AT 40 LPM AND NRB AT 15LPM. BREATHING EVEN AND UNLABORED. CURRENT OXYGEN SATURATION AT 100%. PT IS NOT ALERT OR ORIENTED. ON COLLECTIONS OFFICER . PER ENDORSEMENT, PT IS NOW ON COMFORT CARE WITH MORPHINE DRIP RUNNING AT 5 ML/HR VIA RIGHT UPPER ARM ML. RIGHT IJ HD CATH NOTED. ALL SAFETY MEASURES IMPLEMENTED. WILL CONTINUE TO MONITOR AND ASSESS FOR ANY CHANGES DURING SHIFT.
[2021-11-13] MEDS ORDERED: KEY,NONCONTROL,TO KEEP IN PYXI 1 EA MC ONE (11:29)
[2021-11-13] MEDS: MORPHINE SULFATE PF DRIP 250 MG in IV D5W 240 ML IV PRN (11:41)
--- NOTE | 2021-11-13 15:22 | NUR ---
SS Note: MORENITA received call from [facility] [employer], Geno Bai [phone] regarding DC plan. MORENITA addressed Geno's questions. SW will remain available as needed.
--- NOTE | 2021-11-13 18:45 | NUR ---
DRAFTER CIVIL (CAD) CLOSING NOTE PT RECEIVED IN BED. PT IS ON NRB AT 15LPM. BREATHING EVEN AND UNLABORED. PT IS NOT ALERT OR ORIENTED. PT IS NOW ON COMFORT CARE WITH MORPHINE DRIP RUNNING AT 5 ML/HR VIA RIGHT UPPER ARM ML. RIGHT IJ HD CATH NOTED. NG TUBE NOTED BUT HAS BEEN DC DUE TO PATIENT BEING COMFORT MEASURE ONLY. ALL SAFETY MEASURES IMPLEMENTED. WILL ENDORSE TO NIGHT NURSE FOR FENG.
--- NOTE | 2021-11-13 20:00 | NUR ---
MS RN NOTE PT IN BED LETHARGIC. ON NRB 15 L. PT ON COMFORT CARE ONLY. NO DISTRESS OR DISCOMFORT NOTED. NO S/S OF PAIN NOTED. PT REMAIN ON MORPHINE DRIP5 5 MG /HR. KEPT HIM DRY AND CLEAN. ALL NEEDS ATTENDED. REPOSITION HIM Q2H, SIDE RAILS UP X 2. CONTINUE TO MONITOR HIM.
[2021-11-14] VITALS: BP 97/23
--- NOTE | 2021-11-14 06:39 | NUR ---
MS RN NOTE PT IN BED LETHARGIC, NO DISTRESS OR DISCOMFORT NOTED. REMAIN ON MORPHINE DRIP 5 MG/HR. RESP 4 PER MINUTE ORAL CARE GIVEN. REPOSITION HIM Q2H, KEPT HIM DRY AND CLEAN. ALL NEEDS ATTENDED. WILL ENDORSE TO DAY SHIFT NURSE.
--- NOTE | 2021-11-14 07:17 | NUR ---
RN OPENING NOTE PT RECEIVED IN BED A/O X0 . PT IS ON NRB AT 15LPM. BREATHING EVEN. PT IS NOW ON COMFORT CARE ONLY WITH MORPHINE DRIP RUNNING AT 5 ML/HR VIA RIGHT UPPER ARM ML. RIGHT IJ HD CATH NOTED. ALL SAFETY MEASURES IMPLEMENTED BED IN THE LOWEST POSITION, LOCKED, 2 SIDE RAILS UP AND CALL LIGHT WITH REACH.
[2021-11-14 08:00] VITALS: BP 96/46
[2021-11-14] MEDS ORDERED: KEY,NONCONTROL,TO KEEP IN PYXI 1 EA MC ONE (12:54)
[2021-11-14] MEDS: MORPHINE SULFATE PF DRIP 250 MG in IV D5W 240 ML IV PRN (12:56)
[2021-11-14 16:00] VITALS: BP 99/49
--- NOTE | 2021-11-14 18:48 | NUR ---
RN CLOSING NOTE PT RECEIVED IN BED A/O X0 . PT IS ON ROOM AOR BREATHING EVEN. PT IS NOW ON COMFORT CARE ONLY WITH MORPHINE DRIP RUNNING AT 5 ML/HR VIA RIGHT UPPER ARM ML. RIGHT IJ HD CATH NOTED. ALL SAFETY MEASURES IMPLEMENTED BED IN THE LOWEST POSITION, LOCKED, 2 SIDE RAILS UP AND CALL LIGHT WITH REACH.
[2021-11-14 20:00] VITALS: BP 82/40
[2021-11-15] VITALS: BP 80/39
[2021-11-15 04:00] VITALS: BP 67/31
--- NOTE | 2021-11-15 06:30 | NUR ---
RN CLOSING NOTES PT IN BED A/O X0, NON RESPONSIVE. ON ROOM AIR, O2 SAT 95%. NOTED WITH SALLOW BREATHING. ON COMFORT CARE WITH MORPHINE DRIP RUNNING AT 5 ML/HR. IV ACCESS ON RIGHT UPPER ARM MIDLINE INTACT AND PATENT. RIGHT IJ HD CATH. NO FACIAL GRIMACING NOTED. RESPIRATION 7-8. NIXON CATHETER HAS ONLY 50C OF URINE. NOTED HEMATURIA. FAMILY WAS AT BEDSIDE LAST NIGHT. AWARE OF HIS CONDITIONS. ALL SAFETY MEASURES IN PLACE. BED IN THE LOWEST POSITION AND LOCKED. SIDE RAILS UP X3, PLACE CALL LIGHT WITH REACH. WILL ENDORSE TO MORNING SHIFT NURSE.
--- NOTE | 2021-11-15 07:30 | NUR ---
RN OPENING NOTES PT RECEIVED IN BED A/O X0, NON RESPONSIVE. ON ROOM AIR. ON COMFORT CARE WITH MORPHINE DRIP RUNNING AT 5 ML/HR. IV ACCESS ON RIGHT UPPER ARM ML INTACT AND PATENT. RIGHT IJ HD CATH. NO FACIAL GRIMACING NOTED. NOT ON DISTRESS. ALL SAFETY MEASURES IN PLACE. BED IN THE LOWEST POSITION AND LOCKED. SIDE RAILS UP X3, PLACE CALL LIGHT WITH REACH. WILL CONTINUE TO MONITOR PATIENT ACCORDINGLY.
[2021-11-15 12:00] VITALS: BP 60/45
[2021-11-15] MEDS ORDERED: KEY,NONCONTROL,TO KEEP IN PYXI 1 EA MC ONE ×2 (12:20→18:15)
[2021-11-15] MEDS: MORPHINE SULFATE PF DRIP 250 MG in IV D5W 240 ML IV PRN (12:22)
--- NOTE | 2021-11-15 17:20 | NUR ---
RN NOTES PATIENT WITH NO VITAL SIGNS, NO RESPIRATIONS NOTED, CONFIRMED BY CHARGE NURSE PATIENT . FAMILY AT BEDSIDE. NURSING WOODS SUPERINTENDENT MADE AWARE. MADE AWARE. SPOKE TO CLARITZA FROM [facility] . PER FAMILY MORTUARY INFORMATION WILL BE GIVEN TOMORROW.
--- NOTE | 2021-11-15 17:45 | NUR ---
RN NOTES SPOKE TO KANIKA FROM [facility] FOR RELEASE OF BODY REFERENCE .
--- NOTE | 2021-11-15 18:37 | NUR ---
RN NOTES POSTMORTEM CARE PROVIDED TO PATIENT. REMOVED NIXON CATH AND IV ACCESS. BODY PLACED IN BODY BAG WITH NAME TAG.
--- NOTE | 2021-11-15 18:43 | NUR ---
per [facility] nursing sup need to move body to morgue around 8 pm,will endorsed to night charge.
--- NOTE | 2021-11-15 23:00 | NUR ---
RN NOTE PATIENT REMAINS PICKED UP BY SECURITY VIA GURNEY. ALL BELONGINGS TRANSPORTED WITH BODY.
--- NOTE | 2021-11-16 15:58 | NUR ---
MORENITA received visit from[facility] Kheanna Mosley, KISHA [phone] asking for pt. update. MORENITA notified her that per EMR, pt. 05/15/2022 and family was at bedside. Kenrick expressed understanding. MORENITA will remain available as needed.
== END 2021-11-15 21:28 | DRG 871 ==
LOC: ER 07:14 → TRANSITION 11:46 → MEDSG1 16:30 → TELE-TD 17:08 → TELE1 17:42 → MEDSG1 11-13 11:36
PROVIDERS: ADMIT Nurse Practitioner Acute Care; ATTEND Nurse Practitioner Family
PROC: 05HM33Z Insertion of Infusion Device into Right Internal Jugular Vein, Percutaneous Approach (ICD-10-PCS; principal; 2021-11-09)
PROC: B543ZZA Ultrasonography of Right Jugular Veins, Guidance (ICD-10-PCS; 2021-11-09)
PROC: 5A1D70Z Performance of Urinary Filtration, Intermittent, Less than 6 Hours Per Day (ICD-10-PCS; 2021-11-09)
DX: A41.89 Other specified sepsis (principal); L89.893 Pressure ulcer of other site, stage 3; U07.1 COVID-19; I21.4 Non-ST elevation (NSTEMI) myocardial infarction; J15.9 Unspecified bacterial pneumonia; J96.01 Acute respiratory failure with hypoxia; J12.82 Pneumonia due to coronavirus disease 2019; N17.0 Acute kidney failure with tubular necrosis; E43 Unspecified severe protein-calorie malnutrition; G92.8 Other toxic encephalopathy; D68.59 Other primary thrombophilia; E87.0 Hyperosmolality and hypernatremia; N39.0 Urinary tract infection, site not specified; R64 Cachexia; Z68.1 Body mass index [BMI] 19.9 or less, adult; E87.2 Acidosis; I69.359 Hemiplegia and hemiparesis following cerebral infarction affecting unspecified side; Z51.5 Encounter for palliative care; I12.9 Hypertensive chronic kidney disease with stage 1 through stage 4 chronic kidney disease, or unspecified chronic kidney disease; N18.9 Chronic kidney disease, unspecified; D72.819 Decreased white blood cell count, unspecified; E87.8 Other disorders of electrolyte and fluid balance, not elsewhere classified; N40.0 Benign prostatic hyperplasia without lower urinary tract symptoms; Z66 Do not resuscitate; Z79.82 Long term (current) use of aspirin; E78.5 Hyperlipidemia, unspecified; E86.1 Hypovolemia; E86.0 Dehydration; Z74.09 Other reduced mobility; E88.09 Other disorders of plasma-protein metabolism, not elsewhere classified; L89.896 Pressure-induced deep tissue damage of other site; L89.526 Pressure-induced deep tissue damage of left ankle; N40.1 Benign prostatic hyperplasia with lower urinary tract symptoms; M62.50 Muscle wasting and atrophy, not elsewhere classified, unspecified site; F03.90 Unspecified dementia, unspecified severity, without behavioral disturbance, psychotic disturbance, mood disturbance, and anxiety; B96.20 Unspecified Escherichia coli [E. coli] as the cause of diseases classified elsewhere
CPT/HCPCS: 36415; 71045-TC; 80048-TC; 80053-TC; 80076-TC; 80202-TC; 81001; 82550-TC; 82553; 82570-TC; 82728-TC; 83605-TC; 83735-TC; 83970; 84100-TC; 84155; 84155-TC; 84165; 84300-TC; 84484-TC; 85025-TC; 85378-TC; 85610-TC; 85730-TC; 86704; 86706; 86803; 87040-TC; 87081-TC; 87086-TC; 87186-TC; 87340; 90935-TC; 92526; 92611-TC; 93307-TC; 94760-TC; 94762-TC; 94799-TC; A4216; A6253; C1750; C9803; G0378; J0692; J0696; J1100; J1644; J2274; J2543; J3370; J7030; J7040; J7050; J7060; J7070; P9047; U0003